=== PATIENT | female | born 1950 | race Caucasian/White ===

== ENCOUNTER 2018-02-24 09:34 | Outpatient (CLI) | payer MEDICARE, BC ==
[2018-02-24] VITALS (13 sets, daily range): BP systolic 143–167; BP diastolic 71–105
== END 2018-02-24 23:59 | disposition home or self-care (01) ==
LOC: CARD DIAG 09:34
PROVIDERS: ATTEND Internal Medicine Cardiovascular Disease
DX: R55 Syncope and collapse (principal); Z79.899 Other long term (current) drug therapy
CPT/HCPCS: 93660